=== PATIENT | male | born 1950 | race Caucasian/White ===

== ENCOUNTER 2021-08-15 13:19 | Emergency (ER) | payer MEDICARE, OTHER ==
[2021-08-15 13:40] VITALS: BP 148/77; PULSE 90; RESP 18; TEMP 100.4
--- NOTE | 2021-08-15 14:03 | ED ---
General Adult HPI - General Chief complaint: Extremity Problem,Nontraumatic Stated complaint: lt leg swelling Time Seen by Provider: 08/15/21 13:43 Source: EMS Mode of arrival: EMS Limitations: no limitations - History of Present Illness Initial comments: Dictation was produced using [email or web address] dictation software. please excuse any grammatical, word or spelling errors. Chief Complaint: 70-year-old male presents with left lower extremity redness and pain History of Present Illness: 70-year-old obese male with past medical history lymphedema prostate disease. He states that today he noticed that his left lower extremity was red and swollen and painful. Patient states his leg to look symmetrical size. No tenderness morning noticed that it was red hot and painful. He reports he has history of lymphedema. Patient's not currently on antibiotics. Denies any fever or constitutional symptoms. The ROS documented in this emergency department record has been reviewed and confirmed by me. Those systems with pertinent positive or negative responses have been documented in the HPI. All other systems are other negative and/or n oncontributory. PHYSICAL EXAM: General Impression: Alert and oriented x3, not in acute distress HEENT: Normocephalic atraumatic, extra-ocular movements intact, pupils equal and reactive to light bilaterally, mucous membranes moist. Cardiovascular: Heart regular rate and rhythm Chest: Able to complete full sentences, no retractions, no tachypnea Abdomen: abdomen soft, non-tender, non-distended, no organomegaly Musculoskeletal: Pulses present and equal in all extremities, no peripheral edema Motor: no focal deficits noted Neurological: CN II-XII grossly intact, no focal motor or sensory deficits noted Skin: Intact with no visualized rashes Left lower; circumferential erythema and warmth with palpable tenderness. Psych: Normal affect and mood ED course: 70-year-old male presents emergency Department with left lower extremity cellulitis. Vital Signs upon arrival shows temperature 100.4, rest of vital signs within acceptable limits. Laboratory evaluation obtained. No leukocytosis. CBC within acceptable limits. Coag panel is unremarkable. Metabolic panel is normal. CRP is elevated. X- ray does not show any myofascial gas. Clinical presentation consistent with soft tissue cellulitis. Disposition options were discussed. Patient is motivated to be discharged. Spoke with patient's primary care doctor, Dr. Alberts at 3:30 PM was agreeable with discharge and to follow up in his primary care office tomorrow. Patient given dose of ceftriaxone and prescription for Keflex. Patient is agreeable to plan. Prescription sent to pharmacy. Patient given return precautions and is agreeable to plan. EKG interpretation: Ventricular rate 80, sinus rhythm,. Interval 166, QS 89, QTc 388. No [place] prolongation, no QTC prolongation, no ST or T-wave changes noted. Overall, this EKG is unremarkable - Related Data Home Medications Medication Instructions Recorded Confirmed Doxazosin Mesylate 8 mg PO HS 02/10/14 02/23/14 Fish Oil(Dose Unknown) 1 cap PO DAILY 02/10/14 02/23/14 Multivitamins, Thera [Multivitamin 1 each PO DAILY 02/10/14 02/10/14 (formulary)] Saw [place] Fruit/Zinc Picoli 1 each PO DAILY 02/10/14 02/23/14 [Saw [place] Capsule] Timolol 0.5% Ophth Soln [Timoptic 1 drop RIGHT EYE BID 02/10/14 02/23/14 0.5% Ophth Soln] Vitamin E(Dose Unknown) 1 tab PO DAILY 02/10/14 02/23/14 Previous Rx's Medication Instructions Recorded HYDROcodone/APAP 7.5-325MG [Sunray 1 - 2 each PO Q6HR PRN #60 tab 02/26/14 7.5-325] Warfarin [Coumadin] 2.5 mg PO DAILY #27 tab 02/26/14 Cephalexin [Keflex] 500 mg PO Q6HR 5 Days #20 cap 08/15/21 Allergies Allergy/AdvReac Type Severity Reaction Status Date / Time latex Allergy Rash/Hives Verified 08/15/21 13:37 Review of Systems ROS Statement: Those systems with pertinent positive or pertinent negative responses have been documented in the HPI. ROS Other: All systems not noted in ROS Statement are negative. Past Medical History Past Medical History: Eye Disorder, Prostate Disorder Additional Past Medical History / Comment(s): uses a cane, arthritis, glaucoma rt eye,BPH,OA History of Any Multi-Drug Resistant Organisms: None Reported Past Surgical History: Orthopedic Surgery, Tonsillectomy Additional Past Surgical History / Comment(s): left knee surgery, colonoscopy Past Anesthesia/Blood Transfusion Reactions: Motion Sickness Past Psychological History: No Psychological Hx Reported Smoking Status: Never smoker Past Alcohol Use History: Daily Past Drug Use History: None Reported - Past Family History Father Family Medical History: Asthma, COPD, Hypertension Mother Family Medical History: Coronary Artery Disease (CAD) (mother at the age of 87 with CAD,[place],COPD) Brother(s) Family Medical History: No Reported History (one brother with no medical issues) Sister(s) Family Medical History: No Reported History (one sister with no medical issues.) General Exam Limitations: no limitations Course Vital Signs 08/15/21 13:37 Temperature 100.4 F H Pulse Rate 90 Respiratory 18 Rate Blood Pressure 148/77 O2 Sat by Pulse 96 Oximetry Medical Decision Making - Lab Data Result diagrams: 08/15/21 14:06 08/15/21 14:06 Lab Results 08/15/21 08/15/21 08/15/21 Range/Units 14:06 14:06 14:06 WBC 7.8 (3.8-10.6) k/uL RBC 4.33 (4.30-5.90) m/uL Hgb 12.6 L (13.0-17.5) gm/dL Hct 38.5 L (39.0-53.0) % MCV 88.9 (80.0-100.0) fL MCH 29.1 (25.0-35.0) pg MCHC 32.7 (31.0-37.0) g/dL RDW 13.8 (11.5-15.5) % Plt Count 234 (150-450) k/uL MPV 7.8 Neutrophils % (Manual) 61 % Lymphocytes % (Manual) 15 % Monocytes % (Manual) 16 % Eosinophils % (Manual) 6 % Metamyelocytes % 2 % Neutrophils # (Manual) 4.76 (1.3-7.7) k/uL Lymphocytes # (Manual) 1.17 (1.0-4.8) k/uL Monocytes # (Manual) 1.25 H (0-1.0) k/uL Eosinophils # (Manual) 0.47 (0-0.7) k/uL Metamyelocytes # (Man) 0.16 H (0) k/uL Nucleated RBCs 0 (0-0) /100 WBC Manual Slide Review Performed PT 10.4 (9.0-12.0) sec INR 0.9 (<1.2) APTT 25.3 (22.0-30.0) sec Sodium 137 (137-145) mmol/L Potassium 4.1 (3.5-5.1) mmol/L Chloride 104 (98-107) mmol/L Carbon Dioxide 23 (22-30) mmol/L Anion Gap 10 mmol/L BUN 20 (9-20) mg/dL Creatinine 0.94 (0.66-1.25) mg/dL Est GFR (CKD-EPI)AfAm >90 (>60 ml/min/1.73 sqM) Est GFR (CKD-EPI)NonAf 82 (>60 ml/min/1.73 sqM) Glucose 95 (74-99) mg/dL Plasma Lactic Acid Ricki (0.7-2.0) mmol/L Calcium 8.7 (8.4-10.2) mg/dL Magnesium 1.8 (1.6-2.3) mg/dL C-Reactive Protein 17.7 H (<1.0) mg/dL 08/15/21 Range/Units 14:23 WBC (3.8-10.6) k/uL RBC (4.30-5.90) m/uL Hgb (13.0-17.5) gm/dL Hct (39.0-53.0) % MCV (80.0-100.0) fL MCH (25.0-35.0) pg MCHC (31.0-37.0) g/dL RDW (11.5-15.5) % Plt Count (150-450) k/uL MPV Neutrophils % (Manual) % Lymphocytes % (Manual) % Monocytes % (Manual) % Eosinophils % (Manual) % Metamyelocytes % % Neutrophils # (Manual) (1.3-7.7) k/uL Lymphocytes # (Manual) (1.0-4.8) k/uL Monocytes # (Manual) (0-1.0) k/uL Eosinophils # (Manual) (0-0.7) k/uL Metamyelocytes # (Man) (0) k/uL Nucleated RBCs (0-0) /100 WBC Manual Slide Review PT (9.0-12.0) sec INR (<1.2) APTT (22.0-30.0) sec Sodium (137-145) mmol/L Potassium (3.5-5.1) mmol/L Chloride (98-107) mmol/L Carbon Dioxide (22-30) mmol/L Anion Gap mmol/L BUN (9-20) mg/dL Creatinine (0.66-1.25) mg/dL Est GFR (CKD-EPI)AfAm (>60 ml/min/1.73 sqM) Est GFR (CKD-EPI)NonAf (>60 ml/min/1.73 sqM) Glucose (74-99) mg/dL Plasma Lactic Acid Ricki 0.9 (0.7-2.0) mmol/L Calcium (8.4-10.2) mg/dL Magnesium (1.6-2.3) mg/dL C-Reactive Protein (<1.0) mg/dL Disposition Clinical Impression: Cellulitis Disposition: HOME SELF-CARE Condition: Good Instructions (If sedation given, give patient instructions): Cellulitis (ED) Prescriptions: Cephalexin [Keflex] 500 mg PO Q6HR 5 Days #20 cap Is patient prescribed a controlled substance at d/c from ED?: No Referrals: Nazario Alberts MD [Primary Care Provider] - 1-2 days
[2021-08-15 14:31] LABS: HCT 38.5 % (39.0-53.0); HGB 12.6 gm/dL (13.0-17.5); MCH 29.1 pg (25.0-35.0); MCHC 32.7 g/dL (31.0-37.0); MCV 88.9 fL (80.0-100.0); Mean Platelet Volume 7.8; Platelet Count 234 k/uL (150-450); RBC 4.33 m/uL (4.30-5.90); RDW 13.8 % (11.5-15.5); WBC 7.8 k/uL (3.8-10.6)
--- NOTE | 2021-08-15 14:36 | XR ---
Left leg HISTORY: Erythema and swelling Frontal and lateral views of the left leg are submitted on 4 images There is soft tissue swelling present. No evident periostitis. Cortical thickening of the mid fibular diaphysis thought likely to BE due to remote trauma and healing. 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 There are vascular ca lcifications present. Suprapatellar increased density suggests underlying joint effusion. Ossific den sity deep to the patellar tendon on the lateral view may represent loose body within the knee joint, consider synovial osteochondromatosis. There is a plantar calcaneal spur. Osteoarthritic changes are present within the foot but incompletely evaluated. IMPRESSION: Correlate for cellulitis. Correlate for osteoarthritis, remote trauma to the fibula as de scribed.
[2021-08-15 14:41] LABS: INR 0.9 (<1.2); Partial Thromboplastin Time 25.3 sec (22.0-30.0); Prothrombin Time 10.4 sec (9.0-12.0)
[2021-08-15 14:42] LABS: African American GFR (CKD) >90 (>60 ml/min/1.73 sqM); Anion Gap 10 mmol/L; Blood Urea Nitrogen 20 mg/dL (9-20); Calcium 8.7 mg/dL (8.4-10.2); Carbon Dioxide 23 mmol/L (22-30); Chloride 104 mmol/L (98-107); Glucose 95 mg/dL (74-99); Magnesium 1.8 mg/dL (1.6-2.3); Non-African American GFR(CKD) 82 (>60 ml/min/1.73 sqM); Potassium 4.1 mmol/L (3.5-5.1); Sodium 137 mmol/L (137-145)
[2021-08-15 14:57] LABS: C Reactive Protein 17.7 mg/dL (<1.0)
[2021-08-15 15:11] LABS: Eosinophils # (M) 0.47 k/uL (0-0.7); Lymphocytes # (M) 1.17 k/uL (1.0-4.8); Metamyelocytes # (M) 0.16 k/uL (0); Metamyelocytes % 2 %; Monocytes # (M) 1.25 k/uL (0-1.0); Neutrophils # (M) 4.76 k/uL (1.3-7.7); Neutrophils % (M) 61 %; Nucleated Red Blood Cells 0 /100 WBC (0-0); Total Cells Counted 100
[2021-08-15] MEDS ORDERED: VANCOMYCIN IV PER PHARMACY 1 EACH MISC MISCELLANE PRN (15:19)
[2021-08-15] MEDS ORDERED: VANCOMYCIN 2,500 MG in SODIUM CHLORIDE 0.9% 500 ML 500 ML IVPB STA (15:23)
[2021-08-15] MEDS ORDERED: cefTRIAXone IN SWFI 1,000 MG/10 ML SYRINGE IVP STA (15:30)
[2021-08-15 15:35] LABS: Erythrocyte Sedimentation Rate 87 mm/hr (0-15)
[2021-08-16] MEDS ORDERED: VANCOMYCIN 2,000 MG in SODIUM CHLORIDE 0.9% 500 ML 500 ML IVPB SCH (08:00)
== END 2021-08-15 16:20 | disposition home or self-care (01) ==
LOC: EC 13:19
DX: L03.90 Cellulitis, unspecified (principal); I10 Essential (primary) hypertension; J45.909 Unspecified asthma, uncomplicated
CPT/HCPCS: 36415; 93005; 80048; 85652; 83605; 83735; 85025; 85610; 85730; 86140; 87040; 73590; 99284; 96374; J0696

== ENCOUNTER 2022-06-03 04:49 | Emergency (ER) | payer MEDICARE, OTHER ==
--- NOTE | 2022-06-03 04:56 | ED ---
Recheck HPI - General Stated Complaint: Blocked Catheter Time Seen by Provider: 06/03/22 04:56 Source: RN notes reviewed, old records reviewed - History of Present Illness Initial Comments: This is a 71-year-old male to the emergency department for evaluation patient Dese for evaluation regards to inability to urinate. Severe abdominal pain. Patient has had history of urinary retention the past MD Complaint: other (Recheck of Diaz catheter) -: hour(s) Returns Today for: persistent/worsening pain related to initial visit Symptoms Since Prior Visit: worsening pain Associated Symptoms: nausea, abdominal pain Treatments Prior to Arrival: urinary catheter in place, Given Pain Meds on, other (Diaz catheter placed) - Related Data Home Medications Medication Instructions Recorded Confirmed Multivitamins, Thera [Multivitamin 1 each PO DAILY 02/10/14 08/15/21 (formulary)] Timolol 0.5% Ophth Soln [Timoptic 1 drop BOTH EYES BID 02/10/14 08/15/21 0.5% Ophth Soln] Aspirin EC [Ecotrin Low Dose] 81 mg PO DAILY 08/15/21 08/15/21 Ibuprofen [Advil] 400 mg PO Q8HR PRN 08/15/21 08/15/21 Latanoprost/Pf [Latanoprost 0.005% 1 drop BOTH EYES HS 08/15/21 08/15/21 Eye Drop] Rosuvastatin Calcium [Crestor] 5 mg PO DAILY 08/15/21 08/15/21 Terazosin HCl [Hytrin] 10 mg PO DAILY 08/15/21 08/15/21 Previous Rx's Medication Instructions Recorded Cephalexin [Keflex] 500 mg PO Q6HR 5 Days #20 cap 08/15/21 Allergies Allergy/AdvReac Type Severity Reaction Status Date / Time latex Allergy Rash/Hives Verified 06/03/22 04:57 Review of Systems ROS Statement: Those systems with pertinent positive or pertinent negative responses have been documented in the HPI. ROS Other: All systems not noted in ROS Statement are negative. Past Medical History Past Medical History: Eye Disorder, Prostate Disorder Additional Past Medical History / Comment(s): uses a cane, arthritis, glaucoma rt eye,BPH,OA History of Any Multi-Drug Resistant Organisms: None Reported Past Surgical History: Orthopedic Surgery, Tonsillectomy Additional Past Surgical History / Comment(s): left knee surgery, colonoscopy Past Anesthesia/Blood Transfusion Reactions: Motion Sickness Past Psychological History: No Psychological Hx Reported Smoking Status: Never smoker Past Alcohol Use History: Daily Past Drug Use History: None Reported - Past Family History Father Family Medical History: Asthma, COPD, Hypertension Mother Family Medical History: Coronary Artery Disease (CAD) (mother at the age of 87 with CAD,[place],COPD) Brother(s) Family Medical History: No Reported History (one brother with no medical issues) Sister(s) Family Medical History: No Reported History (one sister with no medical issues.) General Exam General appearance: alert, in no apparent distress, anxious, in distress Head exam: Present: atraumatic, normocephalic, normal inspection Eye exam: Present: normal appearance, PERRL, EOMI. Absent: scleral icterus, conjunctival injection, periorbital swelling ENT exam: Present: normal exam, mucous membranes moist Neck exam: Present: normal inspection. Absent: tenderness, meningismus, lymphadenopathy Respiratory exam: Present: normal lung sounds bilaterally. Absent: respiratory distress, wheezes, rales, rhonchi, stridor Cardiovascular Exam: Present: regular rate, normal rhythm, normal heart sounds. Absent: systolic murmur, diastolic murmur, rubs, gallop, clicks GI/Abdominal exam: Present: soft, normal bowel sounds. Absent: distended, tenderness, guarding, rebound, rigid Extremities exam: Present: normal inspection, full ROM, normal capillary refill. Absent: tenderness, pedal edema, joint swelling, calf tenderness Back exam: Present: normal inspection Neurological exam: Present: alert, oriented X3, CN II-XII intact Psychiatric exam: Present: normal affect, normal mood Skin exam: Present: warm, dry, intact, normal color. Absent: rash Course Vital Signs 06/03/22 04:54 Temperature 98.0 F Pulse Rate 88 Respiratory 20 Rate Blood Pressure 154/102 O2 Sat by Pulse 98 Oximetry - Reevaluation(s) Reevaluation #1: 06/03/22 medical record is reviewed Patient symptoms are improved here in the ER Patient informed of results and questions answered Reevaluation #2: Symptoms really resolved with catheter placement Medical Decision Making - Medical Decision Making 71 male emergency department for evaluation patient has urinary catheter placed secondary to urinary retention, symptoms resolved he feels good for discharge home - Lab Data Lab Results 06/03/22 Range/Units 06:18 Urine Color Light Red Urine Appearance Cloudy (Clear) Urine pH 6.0 (5.0-8.0) Ur Specific [place] 1.015 (1.001-1.035) Urine Protein 1+ H (Negative) Urine Glucose (UA) Negative (Negative) Urine Ketones Negative (Negative) Urine Blood Large H (Negative) Urine Nitrite Negative (Negative) Urine Bilirubin Negative (Negative) Urine Urobilinogen <2.0 (<2.0) mg/dL Ur Leukocyte Esterase Large H (Negative) Urine RBC >182 H (0-5) /hpf Urine WBC >182 H (0-5) /hpf Urine WBC Clumps Many H (None) /hpf Urine Mucus Occasional H (None) /hpf Urine Yeast (Budding) Many H (None) /hpf Disposition Clinical Impression: Malfunction of Diaz catheter Disposition: HOME SELF-CARE Condition: Good Instructions (If sedation given, give patient instructions): Urinary Retention in Men (ED) Is patient prescribed a controlled substance at d/c from ED?: No Referrals: Nazario Alberts MD [Primary Care Provider] - 1-2 days Time of Disposition: 05:30
[2022-06-03 04:57] VITALS: BP 154/102; PULSE 88; RESP 20; TEMP 98
[2022-06-03 07:15] LABS: Appearance,Urine Cloudy (Clear); Bilirubin,Urine Negative (Negative); Blood,Urine Large (Negative); Budding Yeast,Urine Many /hpf; Color,Urine Light Red; Glucose,Urine (UA) Negative (Negative); Ketones,Urine Negative (Negative); Leukocyte Esterase,Urine Large (Negative); Mucus,Urine Occasional /hpf; Nitrite,Urine Negative (Negative); Protein,Urine 1+ (Negative); RBC,Urine >182 /hpf (0-5); Specific Gravity,Urine 1.015 (1.001-1.035); Urobilinogen,Urine <2.0 mg/dL (<2.0); WBC,Urine >182 /hpf (0-5)
== END 2022-06-03 07:30 | disposition home or self-care (01) ==
LOC: EC 04:49
DX: T83.018A Breakdown (mechanical) of other urinary catheter, initial encounter (principal); Z91.040 Latex allergy status; Z79.82 Long term (current) use of aspirin; Z90.89 Acquired absence of other organs
CPT/HCPCS: 51702; 81001; 87077; 87086; 87186; 99283